=== PATIENT | female | born 1945 | race Caucasian/White ===

== ENCOUNTER 2017-02-09 14:57 | Emergency (ER) | payer OTHER ==
[2017-02-09 15:08] VITALS: TEMP 99
[2017-02-09] MEDS ORDERED: NS 1,000 ML IV ONE (15:53)
--- NOTE | 2017-02-09 15:57 | EDPHY ---
H & P Stated Complaint: diarrhea, hx crohns. recent abx, hx C-diff Time Seen by Provider: 02/09/17 15:41 HPI/ROS: CHIEF COMPLAINT: Diarrhea HISTORY OF PRESENT ILLNESS: The patient is a 72-year-old female with a history of Crohn's disease and an episode of C diff infection in 2013 but nothing since who comes to the emergency department complaining of diarrhea for the last week. She has not had a fever. She denies abdominal pain or cramping. She states that she is having about 5 episodes of diarrhea a day. She is not sure if it is bloody or not. No urinary symptoms. No recent NSAIDs or antibiotics or steroid use. She moved here from [facility] about a year ago. She does not have a online editor here. REVIEW OF SYSTEMS: Constitutional: denies: chills, fever, recent illness, recent injury EENTM: denies: blurred vision, double vision, nose congestion Respiratory: denies: cough, shortness of breath Cardiac: denies: chest pain, irregular heart rate, lightheadedness, palpitations Gastrointestinal/Abdominal: See HPI Genitourinary: denies: dysuria, frequency, hematuria, pain Musculoskeletal: denies: joint pain, muscle pain Skin: denies: lesions, rash, jaundice, bruising Neurological: denies: headache, numbness, paresthesia, tingling, dizziness, weakness Hematologic/Lymphatic: denies: blood clots, easy bleeding, easy bruising Immunologic/allergic: denies: HIV/AIDS, transplant EXAM: GENERAL: Well-appearing, well-nourished and in no acute distress. HEAD: Atraumatic, normocephalic. EYES: Pupils equal round and reactive to light, extraocular movements intact, sclera anicteric, conjunctiva are normal. ENT: TMs normal, nares patent, oropharynx clear without exudates. Moist mucous membranes. NECK: Normal range of motion, supple without lymphadenopathy or JVD. LUNGS: Breath sounds clear to auscultation bilaterally and equal. No wheezes rales or rhonchi. HEART: Regular rate and rhythm without murmurs, rubs or gallops. ABDOMEN: Soft, nontender, normoactive bowel sounds. No guarding, no rebound. No masses appreciated. BACK: No CVA tenderness, no spinal tenderness, step-offs or deformities EXTREMITIES: Normal range of motion, no pitting or edema. No clubbing or cyanosis. NEUROLOGICAL: Cranial nerves II through XII grossly intact. Normal speech, normal gait. 5/5 strength, normal movement in all extremities, normal sensation PSYCH: Normal mood, normal affect. SKIN: Warm, dry, normal turgor, no visible rashes or lesions. Source: Patient Exam Limitations: No limitations - Medical/Surgical History Hx Asthma: No Hx Chronic Respiratory Disease: No Hx Diabetes: No Hx Cardiac Disease: No Hx Renal Disease: No Hx Cirrhosis: No Hx Alcoholism: No Hx HIV/AIDS: No Hx Splenectomy or Spleen Trauma: No Other PMH: recurrent sinusitis, C-Diff. Crohns - Family History Significant Family History: No pertinent family hx - Social History Smoking Status: Never smoked Alcohol Use: Sober Drug Use: None Constitutional: Initial Vital Signs Temperature (C) 37.2 C 02/09/17 15:05 Heart Rate 95 02/09/17 15:05 Respiratory Rate 18 02/09/17 15:05 Blood Pressure 115/80 02/09/17 15:05 O2 Sat (%) 96 02/09/17 15:05 O2 Delivery Mode Room Air Allergies/Adverse Reactions: amoxicillin trihydrate [From Augmentin] Allergy (Verified 06/21/15 10:14) NSAIDS (Non-Steroidal Anti-Inflamma Allergy (Verified 02/09/17 15:04) potassium clavulanate [From Augmentin] Allergy (Verified 06/21/15 10:14) emycin Allergy (Uncoded 06/21/15 10:14) Home Medications: Medication Instructions Recorded Hydrocodone/APAP 5/325 [[place] 1 - 2 tab PO Q4-6PRN PRN #10 tab 06/21/15 5/325 (RX)] Asacol Hd 02/09/17 Medical Decision Making ED Course/Re-evaluation: 6:00 p.m. the patient has not been able to provide a stool sample. She did urinate a lot after IV fluids. She feels well and is eager to go home. We will give her instructions for collecting a stool sample there and bring it back. She will follow up with her primary Dr. Rubin and I will refer her to GI. Differential Diagnosis: Partial list of the Differential diagnosis considered include but were not limited to; dehydration, diarrhea, C difficile, Crohn's disease and although unlikely based on the history and physical exam, I also considered sepsis, obstruction, ischemia, appendicitis. I discussed these differential diagnoses and the plan with the patient as well as the usual and expected course. The patient understands that the diagnosis is provisional and that in medicine we are not always correct and that further workup is often warranted. Usual and customary warnings were given. All of the patient's questions were answered. The patient was instructed to return to the emergency department should the symptoms at all worsen or return, otherwise to followup with the physician as we discussed. - Data Points Laboratory Results: Laboratory Results 02/09/17 16:17 02/09/17 16:17 02/09/17 02/09/17 16:17 16:17 WBC 9.54 10^3/uL H 10^3/uL (3.80-9.50) RBC 3.61 10^6/uL L 10^6/uL (4.18-5.33) Hgb 11.7 g/dL L g/dL (12.6-16.3) Hct 34.5 % L % (38.0-47.0) MCV 95.6 fL fL (81.5-99.8) MCH 32.4 pg pg (27.9-34.1) MCHC 33.9 g/dL g/dL (32.4-36.7) RDW 11.9 % % (11.5-15.2) Plt Count 517 10^3/uL H 10^3/uL (150-400) MPV 8.9 fL fL (8.7-11.7) Neut % (Auto) 68.0 % % (39.3-74.2) Lymph % (Auto) 18.3 % % (15.0-45.0) [place] % (Auto) 10.0 % % (4.5-13.0) Eos % (Auto) 1.7 % % (0.6-7.6) Baso % (Auto) 0.8 % % (0.3-1.7) Nucleat RBC Rel Count 0.0 % % (0.0-0.2) Absolute Neuts (auto) 6.49 10^3/uL 10^3/uL (1.70-6.50) Absolute Lymphs (auto) 1.75 10^3/uL 10^3/uL (1.00-3.00) Absolute Monos (auto) 0.95 10^3/uL H 10^3/uL (0.30-0.80) Absolute Eos (auto) 0.16 10^3/uL 10^3/uL (0.03-0.40) Absolute Basos (auto) 0.08 10^3/uL 10^3/uL (0.02-0.10) Absolute Nucleated RBC 0.00 10^3/uL 10^3/uL (0-0.01) Immature Gran % 1.2 % H % (0.0-1.1) Immature Gran # 0.11 10^3/uL H 10^3/uL (0.00-0.10) Sodium 136 mEq/L mEq/L (134-144) Potassium 3.4 mEq/L L mEq/L (3.5-5.2) Chloride 97 mEq/L mEq/L (97-110) Carbon Dioxide 28 mEq/l mEq/l (22-31) Anion Gap 11 mEq/L mEq/L (8-16) BUN 8 mg/dL mg/dL (7-23) Creatinine 0.8 mg/dL mg/dL (0.6-1.0) Estimated GFR > 60 Glucose 93 mg/dL mg/dL (70-100) Calcium 9.1 mg/dL mg/dL (8.5-10.4) Total Bilirubin 0.5 mg/dL mg/dL (0.1-1.4) Conjugated Bilirubin 0.2 mg/dL mg/dL (0.0-0.5) Unconjugated Bilirubin 0.3 mg/dL mg/dL (0.0-1.1) AST 20 IU/L IU/L (14-46) ALT 28 IU/L IU/L (9-52) Alkaline Phosphatase 77 IU/L IU/L (38-126) Total Protein 6.4 g/dL g/dL (6.3-8.2) Albumin 3.4 g/dL L g/dL (3.5-5.0) Lipase 39 IU/L IU/L (23-300) Microbiology Results: MICROBIOLOGY 02/09/17 17:45 Stool Gastrointestinal Tract Panel (PCR) - Final No Organism Detected Medications Given: Discontinued Medications Sodium Chloride (Ns) 1,000 mls @ 0 mls/hr IV EDNOW ONE; Wide Open PRN Reason: Protocol Stop: 02/09/17 15:54 Last Admin: 02/09/17 16:27 Dose: 1,000 mls Departure - Departure Disposition: Home, Routine, Self-Care Clinical Impression: Diarrhea Qualifiers: Diarrhea type: unspecified type Qualified Code(s): R19.7 - Diarrhea, unspecified Condition: Fair Instructions: Acute Diarrhea (ED) Referrals: JOESPH,DR [Other] - As per Instructions Kerry Orellana MD [Medical Doctor] - As per Instructions Katya Waller [Tech] - As per Instructions
[2017-02-09 16:29] LABS: % IMMATURE GRANULYOCYTES 1.2 % (0.0-1.1); ABSOLUTE IMMATURE GRANULOCYTES 0.11 10^3/uL (0.00-0.10); ADD DIFF? NO; ADD MORPH? NO; ADD SCAN? NO; ATYPICAL LYMPHOCYTE FLAG 30 (0-99); FRAGMENT RBC FLAG 0 (0-99); HEMATOCRIT 34.5 % (38.0-47.0); HEMOGLOBIN 11.7 g/dL (12.6-16.3); LEFT SHIFT FLG 10 (0-99); LIPEMIA HEMOLYSIS FLAG 90 (0-99); MEAN CELL HEMOGLOBIN 32.4 pg (27.9-34.1); MEAN CELL HEMOGLOBIN CONCENTR. 33.9 g/dL (32.4-36.7); MEAN CELL VOLUME 95.6 fL (81.5-99.8); MEAN PLATELET VOLUME 8.9 fL (8.7-11.7); PLATELET CLUMPS FLAG 0 (0-99); PLATELET COUNT 517 10^3/uL (150-400); RED BLOOD CELL COUNT 3.61 10^6/uL (4.18-5.33); RED CELL DISTRIBUTION WIDTH 11.9 % (11.5-15.2)
[2017-02-09 16:38] LABS: ALANINE AMINOTRANSFERASE 28 IU/L (9-52); ALBUMIN 3.4 g/dL (3.5-5.0); ALKALINE PHOSPHATASE 77 IU/L (38-126); ANION GAP 11 mEq/L (8-16); ASPARTATE AMINOTRANSFERASE 20 IU/L (14-46); BILIRUBIN,TOTAL 0.5 mg/dL (0.1-1.4); BILIRUBIN-CONJUGATED 0.2 mg/dL (0.0-0.5); BILIRUBIN-UNCONJUGATED 0.3 mg/dL (0.0-1.1); CALCIUM 9.1 mg/dL (8.5-10.4); CARBON DIOXIDE 28 mEq/l (22-31); CHLORIDE 97 mEq/L (97-110); CREATININE 0.8 mg/dL (0.6-1.0); GLOMERULAR FILTRATION RATE > 60; GLUCOSE 93 mg/dL (70-100); POTASSIUM 3.4 mEq/L (3.5-5.2); SODIUM 136 mEq/L (134-144); TOTAL PROTEIN 6.4 g/dL (6.3-8.2)
[2017-02-09 18:15] VITALS: BP 116/78; PULSE 94; RESP 18; O2SAT 96
== END 2017-02-09 18:14 | disposition home or self-care (01) ==
DX: A04.7 Enterocolitis due to Clostridium difficile (principal); E86.9 Volume depletion, unspecified